=== PATIENT | male | born 1955 | race Caucasian/White ===

== ENCOUNTER 2022-07-24 02:11 | Outpatient (RCR) | payer MEDICAID, SELFPAY ==
[2022-07-24] MEDS: Normal Saline Flush 10 ML SYR IVP (10:39)
[2022-07-24 10:47] LABS: Abs Immature Grans 0.06 10^3/uL (0.0-0.06); Absolute Basophil Count 0.05 10^3/uL (0.0-0.2); Absolute Eosinophil Count 0.32 10^3/uL (0.0-0.7); Absolute Lymphocyte Count 2.02 10^3/uL (1.2-3.4); Absolute Monocyte Count 1.19 10^3/uL (0.1-0.8); Basophils % 0.4; Eosinophils % 2.8; HCT 40.5 % (40.0-50.0); HGB 12.7 g/dL (13.5-17.5); Immature Grans % 0.5; Lymphocytes % 17.7; MCH 26.7 pg (27.0-33.0); MCHC 31.4 % (32.0-36.0); MCV 85 fL (80-95); MPV 10.4 fL (8.0-11.0); Monocytes % 10.4; Neutrophils % 68.2; Platelet Count 297 10^3/uL (130-400); RBC 4.75 10^6/uL (4.36-5.78); RDW 13.9 % (11.8-14.1); RDW-SD 42.8 fL; WBC 11.41 10^3/uL (4.4-10.8)
[2022-07-24 10:49] LABS: Absolute Neutrophil Count 7.78 10^3/uL (1.2-6.7)
[2022-07-24 11:13] LABS: ALT 49 U/L (16-63); AST 48 U/L (15-37); Albumin 2.6 g/dL (3.4-5.0); Alkaline Phosphatase 144 U/L (46-116); Anion Gap 5.8 mmol/L (3-11); BUN 13 mg/dL (7-18); Bilirubin, Total 0.4 mg/dL (0.2-1.0); CO2 28.2 mmol/L (21.0-32.0); CREATININE 0.8 mg/dL (0.70-1.30); Calcium 9.1 mg/dL (8.5-10.1); Chloride 103 mmol/L (98-107); Estimated GFR 98.83 (mL/min/1.73m2); Ferritin 911 ng/mL (26-388); Glucose 110 mg/dL (74-106); Potassium 4.2 mmol/L (3.5-5.1); Sodium 137 mmol/L (136-145)
[2022-07-24 13:08] LABS: Iron 44 ug/dL (65-175); Total Iron Binding Capacity 178 ug/dL (250-450); Transferrin Sat 25 % (20-55)
[2022-07-24 23:48] LABS: CEA 298.1 ng/mL (See Note)
== END 2022-08-03 23:59 | disposition home or self-care (01) ==
LOC: INF 02:11
PROVIDERS: PCP Family Medicine; Visit Provider Internal Medicine Hematology & Oncology
DX: Z45.2 Encounter for adjustment and management of vascular access device (principal); C18.9 Malignant neoplasm of colon, unspecified; C78.7 Secondary malignant neoplasm of liver and intrahepatic bile duct; D64.9 Anemia, unspecified
CPT/HCPCS: 36591; 80053; 82378; 82728; 83540; 83550; 85025

== ENCOUNTER 2022-08-26 00:08 | Outpatient (RCR) | payer MEDICAID, SELFPAY ==
[2022-08-10 07:57] LABS: Abs Immature Grans 0.01 10^3/uL (0.0-0.06); Absolute Basophil Count 0.05 10^3/uL (0.0-0.2); Absolute Eosinophil Count 0.58 10^3/uL (0.0-0.7); Absolute Lymphocyte Count 1.94 10^3/uL (1.2-3.4); Absolute Monocyte Count 1.07 10^3/uL (0.1-0.8); Absolute Neutrophil Count 2.63 10^3/uL (1.2-6.7); Basophils % 0.8; Eosinophils % 9.2; HCT 40.1 % (40.0-50.0); HGB 12.9 g/dL (13.5-17.5); Immature Grans % 0.2; Lymphocytes % 30.9; MCH 27.9 pg (27.0-33.0); MCHC 32.2 % (32.0-36.0); MCV 87 fL (80-95); Neutrophils % 41.9; Platelet Count 296 10^3/uL (130-400); RBC 4.63 10^6/uL (4.36-5.78); RDW 14.8 % (11.8-14.1); RDW-SD 45.5 fL; WBC 6.28 10^3/uL (4.4-10.8)
[2022-08-10 08:12] LABS: ALT 55 U/L (16-63); AST 46 U/L (15-37); Albumin 2.7 g/dL (3.4-5.0); Alkaline Phosphatase 138 U/L (46-116); Anion Gap 6.5 mmol/L (3-11); BUN 9 mg/dL (7-18); Bilirubin, Total 0.3 mg/dL (0.2-1.0); CO2 28.5 mmol/L (21.0-32.0); CREATININE 0.8 mg/dL (0.70-1.30); Calcium 8.9 mg/dL (8.5-10.1); Chloride 103 mmol/L (98-107); Estimated GFR 98.83 (mL/min/1.73m2); Glucose 102 mg/dL (74-106); Potassium 4.3 mmol/L (3.5-5.1); Sodium 138 mmol/L (136-145); Total Protein 7.7 g/dL (6.4-8.2)
[2022-08-10] MEDS: Normal Saline Flush 10 ML SYR IVP (08:27)
[2022-08-12] MEDS: Heparin 500 UNITS/5 ML SYRINGE IV (09:33)
[2022-08-12] MEDS: Normal Saline Flush 10 ML SYR IVP (09:33)
[2022-08-24 08:30] LABS: Abs Immature Grans 0.02 10^3/uL (0.0-0.06); Absolute Basophil Count 0.02 10^3/uL (0.0-0.2); Absolute Eosinophil Count 0.53 10^3/uL (0.0-0.7); Absolute Lymphocyte Count 1.71 10^3/uL (1.2-3.4); Absolute Monocyte Count 0.79 10^3/uL (0.1-0.8); Absolute Neutrophil Count 2.99 10^3/uL (1.2-6.7); Basophils % 0.3; Eosinophils % 8.7; HCT 38.6 % (40.0-50.0); HGB 12.4 g/dL (13.5-17.5); Immature Grans % 0.3; Lymphocytes % 28.2; MCH 28.1 pg (27.0-33.0); MCHC 32.1 % (32.0-36.0); MCV 88 fL (80-95); MPV 10.2 fL (8.0-11.0); Neutrophils % 49.5; Platelet Count 165 10^3/uL (130-400); RBC 4.41 10^6/uL (4.36-5.78); RDW 16.8 % (11.8-14.1); RDW-SD 46.5 fL; WBC 6.06 10^3/uL (4.4-10.8)
[2022-08-24] MEDS: Normal Saline Flush 10 ML SYR IVP (08:32)
[2022-08-24 08:43] LABS: ALT 45 U/L (16-63); AST 37 U/L (15-37); Albumin 2.7 g/dL (3.4-5.0); Alkaline Phosphatase 129 U/L (46-116); Anion Gap 5.3 mmol/L (3-11); BUN 9 mg/dL (7-18); Bilirubin, Total 0.3 mg/dL (0.2-1.0); CO2 28.7 mmol/L (21.0-32.0); CREATININE 0.9 mg/dL (0.70-1.30); Chloride 105 mmol/L (98-107); Estimated GFR 95.37 (mL/min/1.73m2); Glucose 121 mg/dL (74-106); Potassium 4.2 mmol/L (3.5-5.1); Sodium 139 mmol/L (136-145); Total Protein 7.3 g/dL (6.4-8.2)
[2022-08-26 10:57] VITALS: BP 107/67; PULSE 82; RESP 20; TEMP 36.3; O2SAT 96
[2022-08-26] MEDS: Heparin 500 UNITS/5 ML SYRINGE IV (10:59)
[2022-08-26] MEDS: Normal Saline Flush 10 ML SYR IVP (10:59)
== END 2022-09-02 23:59 | disposition home or self-care (01) ==
LOC: INF 00:08
PROVIDERS: PCP Family Medicine; Visit Provider Internal Medicine Hematology & Oncology
DX: Z45.2 Encounter for adjustment and management of vascular access device (principal); C18.9 Malignant neoplasm of colon, unspecified; C78.7 Secondary malignant neoplasm of liver and intrahepatic bile duct
CPT/HCPCS: 36591; 80053; 96523; 82378; 85025

== ENCOUNTER 2022-09-23 00:51 | Outpatient (RCR) | payer MEDICAID, SELFPAY ==
[2022-09-03 00:09] VITALS: BP 107/67; PULSE 82; RESP 20; TEMP 36.3
[2022-09-07 09:10] LABS: Abs Immature Grans 0.02 10^3/uL (0.0-0.06); Absolute Basophil Count 0.03 10^3/uL (0.0-0.2); Absolute Eosinophil Count 0.31 10^3/uL (0.0-0.7); Absolute Lymphocyte Count 1.71 10^3/uL (1.2-3.4); Absolute Monocyte Count 0.85 10^3/uL (0.1-0.8); Absolute Neutrophil Count 2.27 10^3/uL (1.2-6.7); Basophils % 0.6; HCT 37.6 % (40.0-50.0); HGB 12.4 g/dL (13.5-17.5); Immature Grans % 0.4; Lymphocytes % 32.9; MCH 29.2 pg (27.0-33.0); MCV 89 fL (80-95); MPV 10.6 fL (8.0-11.0); Monocytes % 16.4; Neutrophils % 43.7; Platelet Count 134 10^3/uL (130-400); RBC 4.24 10^6/uL (4.36-5.78); RDW 19.2 % (11.8-14.1); RDW-SD 56.6 fL; WBC 5.19 10^3/uL (4.4-10.8)
[2022-09-07 09:23] LABS: ALT 45 U/L (16-63); AST 39 U/L (15-37); Albumin 2.9 g/dL (3.4-5.0); Alkaline Phosphatase 128 U/L (46-116); Anion Gap 6.2 mmol/L (3-11); BUN 10 mg/dL (7-18); Bilirubin, Total 0.3 mg/dL (0.2-1.0); CO2 27.8 mmol/L (21.0-32.0); CREATININE 0.8 mg/dL (0.70-1.30); Calcium 9.5 mg/dL (8.5-10.1); Chloride 106 mmol/L (98-107); Estimated GFR 98.83 (mL/min/1.73m2); Glucose 111 mg/dL (74-106); Potassium 4.3 mmol/L (3.5-5.1); Sodium 140 mmol/L (136-145); Total Protein 7.6 g/dL (6.4-8.2)
[2022-09-07] MEDS: Normal Saline Flush 10 ML SYR IVP (10:23)
[2022-09-07 21:04] LABS: CEA 63.3 ng/mL (See Note)
[2022-09-09] MEDS: Heparin 500 UNITS/5 ML SYRINGE IV (11:06)
[2022-09-09] MEDS: Normal Saline Flush 10 ML SYR IVP (11:06)
[2022-09-21] MEDS: Normal Saline Flush 10 ML SYR IVP (08:57)
[2022-09-21 09:02] LABS: Abs Immature Grans 0.01 10^3/uL (0.0-0.06); Absolute Basophil Count 0.02 10^3/uL (0.0-0.2); Absolute Eosinophil Count 0.31 10^3/uL (0.0-0.7); Absolute Lymphocyte Count 2.03 10^3/uL (1.2-3.4); Absolute Monocyte Count 0.98 10^3/uL (0.1-0.8); Absolute Neutrophil Count 2.91 10^3/uL (1.2-6.7); Basophils % 0.3; HCT 39.7 % (40.0-50.0); Immature Grans % 0.2; Lymphocytes % 32.4; MCH 29.6 pg (27.0-33.0); MCHC 32.7 % (32.0-36.0); MCV 90 fL (80-95); MPV 10.8 fL (8.0-11.0); Monocytes % 15.7; Neutrophils % 46.4; Platelet Count 124 10^3/uL (130-400); RBC 4.39 10^6/uL (4.36-5.78); RDW 21.1 % (11.8-14.1); RDW-SD 66.3 fL; WBC 6.26 10^3/uL (4.4-10.8)
[2022-09-21 09:14] LABS: Anisocytosis 2+; Diff Comment RBC Morph Reviewed
[2022-09-21 10:31] LABS: ALT 36 U/L (16-63); AST 34 U/L (15-37); Albumin 2.9 g/dL (3.4-5.0); Alkaline Phosphatase 127 U/L (46-116); Anion Gap 7.5 mmol/L (3-11); BUN 12 mg/dL (7-18); Bilirubin, Total 0.3 mg/dL (0.2-1.0); CO2 26.5 mmol/L (21.0-32.0); CREATININE 0.8 mg/dL (0.70-1.30); Calcium 9.1 mg/dL (8.5-10.1); Chloride 105 mmol/L (98-107); Estimated GFR 98.83 (mL/min/1.73m2); Glucose 111 mg/dL (74-106); Potassium 4.4 mmol/L (3.5-5.1); Sodium 139 mmol/L (136-145); Total Protein 7.7 g/dL (6.4-8.2)
[2022-09-21 19:27] LABS: CEA 37.5 ng/mL (See Note)
[2022-09-23 10:27] VITALS: PULSE 87; RESP 16; TEMP 36.3; O2SAT 97
[2022-09-23] MEDS: Normal Saline Flush 10 ML SYR IVP (12:33)
[2022-09-23] MEDS: Heparin 500 UNITS/5 ML SYRINGE IV (12:33)
== END 2022-10-03 23:59 | disposition home or self-care (01) ==
LOC: INF 00:51
PROVIDERS: PCP Family Medicine; Visit Provider Internal Medicine Hematology & Oncology
DX: Z45.2 Encounter for adjustment and management of vascular access device (principal); C18.9 Malignant neoplasm of colon, unspecified; C78.7 Secondary malignant neoplasm of liver and intrahepatic bile duct
CPT/HCPCS: 36591; 80053; 96523; 82378; 85025

== ENCOUNTER 2022-11-02 00:41 | Outpatient (RCR) | payer MEDICAID, SELFPAY ==
[2022-10-04 00:15] VITALS: BP 107/67; PULSE 87; RESP 16; TEMP 36.3
[2022-10-05] MEDS: Normal Saline Flush 10 ML SYR IVP (09:32)
[2022-10-05 09:55] LABS: Abs Immature Grans 0.02 10^3/uL (0.0-0.06); Absolute Basophil Count 0.04 10^3/uL (0.0-0.2); Absolute Eosinophil Count 0.32 10^3/uL (0.0-0.7); Absolute Lymphocyte Count 1.92 10^3/uL (1.2-3.4); Absolute Monocyte Count 0.99 10^3/uL (0.1-0.8); Absolute Neutrophil Count 2.17 10^3/uL (1.2-6.7); Basophils % 0.7; Eosinophils % 5.9; HCT 36.3 % (40.0-50.0); Immature Grans % 0.4; Lymphocytes % 35.2; MCH 30.8 pg (27.0-33.0); MCHC 33.1 % (32.0-36.0); MCV 93 fL (80-95); MPV 10.7 fL (8.0-11.0); Monocytes % 18.1; Neutrophils % 39.7; Platelet Count 106 10^3/uL (130-400); RBC 3.89 10^6/uL (4.36-5.78); RDW 22.1 % (11.8-14.1); RDW-SD 72.3 fL; WBC 5.46 10^3/uL (4.4-10.8)
[2022-10-05 10:11] LABS: ALT 37 U/L (16-63); AST 38 U/L (15-37); Albumin 2.9 g/dL (3.4-5.0); Alkaline Phosphatase 125 U/L (46-116); Anion Gap 4.7 mmol/L (3-11); BUN 8 mg/dL (7-18); Bilirubin, Total 0.3 mg/dL (0.2-1.0); CO2 28.3 mmol/L (21.0-32.0); CREATININE 0.8 mg/dL (0.70-1.30); Calcium 8.9 mg/dL (8.5-10.1); Chloride 106 mmol/L (98-107); Estimated GFR 98.83 (mL/min/1.73m2); Glucose 102 mg/dL (74-106); Potassium 4.2 mmol/L (3.5-5.1); Sodium 139 mmol/L (136-145); Total Protein 7.2 g/dL (6.4-8.2)
[2022-10-05 10:21] LABS: Anisocytosis 2+; Diff Comment RBC Morph Reviewed
[2022-10-05 19:39] LABS: CEA 20.9 ng/mL (See Note)
[2022-10-19 08:12] LABS: Abs Immature Grans 0.06 10^3/uL (0.0-0.06); Absolute Basophil Count 0.06 10^3/uL (0.0-0.2); Absolute Lymphocyte Count 2.38 10^3/uL (1.2-3.4); Absolute Neutrophil Count 8.52 10^3/uL (1.2-6.7); Basophils % 0.5; Eosinophils % 2.5; HCT 42.6 % (40.0-50.0); HGB 14.1 g/dL (13.5-17.5); Immature Grans % 0.5; MCH 31.6 pg (27.0-33.0); MCHC 33.1 % (32.0-36.0); MCV 96 fL (80-95); MPV 11.4 fL (8.0-11.0); Monocytes % 9.6; Neutrophils % 67.9; Platelet Count 169 10^3/uL (130-400); RBC 4.46 10^6/uL (4.36-5.78); RDW 20.2 % (11.8-14.1); RDW-SD 70.2 fL; WBC 12.55 10^3/uL (4.4-10.8)
[2022-10-19 08:17] LABS: Absolute Eosinophil Count 0.31 10^3/uL (0.0-0.7)
[2022-10-19] MEDS: Normal Saline Flush 10 ML SYR IVP (08:25)
[2022-10-19 08:27] LABS: ALT 45 U/L (16-63); AST 42 U/L (15-37); Albumin 3.1 g/dL (3.4-5.0); Alkaline Phosphatase 128 U/L (46-116); BUN 11 mg/dL (7-18); Bilirubin, Total 0.3 mg/dL (0.2-1.0); CREATININE 0.8 mg/dL (0.70-1.30); Calcium 9.1 mg/dL (8.5-10.1); Chloride 104 mmol/L (98-107); Estimated GFR 98.83 (mL/min/1.73m2); Glucose 108 mg/dL (74-106); Sodium 138 mmol/L (136-145); Total Protein 7.9 g/dL (6.4-8.2)
[2022-10-19 08:37] LABS: Anisocytosis 2+; Diff Comment RBC Morph Reviewed
[2022-10-19 22:14] LABS: CEA 16.6 ng/mL (See Note)
[2022-10-21] MEDS: Heparin 500 UNITS/5 ML SYRINGE IV (10:51)
[2022-10-21] MEDS: Normal Saline Flush 10 ML SYR IVP (10:51)
[2022-11-02] MEDS: Normal Saline Flush 10 ML SYR IVP (08:36)
[2022-11-02 09:23] LABS: Abs Immature Grans 0.06 10^3/uL (0.0-0.06); Absolute Basophil Count 0.02 10^3/uL (0.0-0.2); Absolute Eosinophil Count 0.35 10^3/uL (0.0-0.7); Absolute Monocyte Count 0.92 10^3/uL (0.1-0.8); Basophils % 0.2; Eosinophils % 2.9; HCT 41.6 % (40.0-50.0); HGB 13.6 g/dL (13.5-17.5); Immature Grans % 0.5; Lymphocytes % 14.9; MCH 31.8 pg (27.0-33.0); MCHC 32.7 % (32.0-36.0); MCV 97 fL (80-95); MPV 10.6 fL (8.0-11.0); Monocytes % 7.6; Neutrophils % 73.9; Platelet Count 141 10^3/uL (130-400); RBC 4.28 10^6/uL (4.36-5.78); RDW 18.8 % (11.8-14.1); RDW-SD 67.1 fL; WBC 12.05 10^3/uL (4.4-10.8)
[2022-11-02 09:47] LABS: ALT 44 U/L (16-63); AST 32 U/L (15-37); Albumin 3.1 g/dL (3.4-5.0); Alkaline Phosphatase 119 U/L (46-116); Anion Gap 8.7 mmol/L (3-11); BUN 8 mg/dL (7-18); Bilirubin, Total 0.3 mg/dL (0.2-1.0); CO2 26.3 mmol/L (21.0-32.0); CREATININE 0.7 mg/dL (0.70-1.30); Calcium 8.9 mg/dL (8.5-10.1); Chloride 105 mmol/L (98-107); Estimated GFR 102.89 (mL/min/1.73m2); Glucose 109 mg/dL (74-106); Potassium 3.6 mmol/L (3.5-5.1); Sodium 140 mmol/L (136-145); Total Protein 7.3 g/dL (6.4-8.2)
[2022-11-02 20:42] LABS: CEA 15.9 ng/mL (See Note)
== END 2022-11-02 23:59 | disposition home or self-care (01) ==
LOC: INF 00:41
PROVIDERS: PCP Family Medicine; Visit Provider Internal Medicine Hematology & Oncology
DX: Z45.2 Encounter for adjustment and management of vascular access device (principal); C18.9 Malignant neoplasm of colon, unspecified; C78.7 Secondary malignant neoplasm of liver and intrahepatic bile duct
CPT/HCPCS: 36591; 80053; 96523; 82378; 85025

== ENCOUNTER 2022-12-02 | Outpatient (RCR) | payer MEDICAID, SELFPAY ==
[2022-11-03 00:07] VITALS: BP 107/67; PULSE 87; RESP 16; TEMP 36.3
[2022-11-16 10:17] LABS: Abs Immature Grans 0.13 10^3/uL (0.0-0.06); Absolute Lymphocyte Count 3.78 10^3/uL (1.2-3.4); Absolute Monocyte Count 1.75 10^3/uL (0.1-0.8); Absolute Neutrophil Count 13.14 10^3/uL (1.2-6.7); Basophils % 0.3; Eosinophils % 0.8; HCT 41.5 % (40.0-50.0); HGB 13.6 g/dL (13.5-17.5); Immature Grans % 0.7; Lymphocytes % 19.9; MCH 32.3 pg (27.0-33.0); MCHC 32.8 % (32.0-36.0); MCV 99 fL (80-95); Monocytes % 9.2; Neutrophils % 69.1; Platelet Count 146 10^3/uL (130-400); RBC 4.21 10^6/uL (4.36-5.78); RDW 15.9 % (11.8-14.1); RDW-SD 58.4 fL; WBC 19.01 10^3/uL (4.4-10.8)
[2022-11-16] MEDS: Normal Saline Flush 10 ML SYR IVP (10:19)
[2022-11-16 10:21] LABS: Absolute Basophil Count 0.06 10^3/uL (0.0-0.2); Absolute Eosinophil Count 0.15 10^3/uL (0.0-0.7)
[2022-11-16 10:29] LABS: Diff Comment Diff Reviewed; RBC Morphology Normal
[2022-11-16 10:33] LABS: ALT 68 U/L (16-63); AST 32 U/L (15-37); Alkaline Phosphatase 104 U/L (46-116); BUN 14 mg/dL (7-18); Bilirubin, Total 0.3 mg/dL (0.2-1.0); CREATININE 0.9 mg/dL (0.70-1.30); Calcium 9.1 mg/dL (8.5-10.1); Chloride 105 mmol/L (98-107); Estimated GFR 95.37 (mL/min/1.73m2); Glucose 98 mg/dL (74-106); Potassium 3.8 mmol/L (3.5-5.1); Sodium 142 mmol/L (136-145)
[2022-11-16 20:10] LABS: CEA 14.2 ng/mL (See Note)
[2022-11-30] MEDS: Normal Saline Flush 10 ML SYR IVP (09:25)
[2022-11-30 09:47] LABS: Abs Immature Grans 0.05 10^3/uL (0.0-0.06); Absolute Basophil Count 0.04 10^3/uL (0.0-0.2); Absolute Eosinophil Count 0.47 10^3/uL (0.0-0.7); Basophils % 0.3; Eosinophils % 3.2; HCT 46.7 % (40.0-50.0); HGB 15.7 g/dL (13.5-17.5); Immature Grans % 0.3; Lymphocytes % 16.5; MCH 32.6 pg (27.0-33.0); MCHC 33.6 % (32.0-36.0); MCV 97 fL (80-95); MPV 11.3 fL (8.0-11.0); Monocytes % 7.2; Neutrophils % 72.5; Platelet Count 158 10^3/uL (130-400); RBC 4.82 10^6/uL (4.36-5.78); RDW 14.1 % (11.8-14.1); RDW-SD 50.4 fL; WBC 14.63 10^3/uL (4.4-10.8)
[2022-11-30 09:48] LABS: Absolute Lymphocyte Count 2.41 10^3/uL (1.2-3.4); Absolute Monocyte Count 1.05 10^3/uL (0.1-0.8); Absolute Neutrophil Count 10.61 10^3/uL (1.2-6.7)
[2022-11-30 10:10] LABS: ALT 68 U/L (16-63); AST 40 U/L (15-37); Albumin 3.2 g/dL (3.4-5.0); Alkaline Phosphatase 103 U/L (46-116); Anion Gap 7.7 mmol/L (3-11); BUN 9 mg/dL (7-18); Bilirubin, Total 0.6 mg/dL (0.2-1.0); CO2 28.3 mmol/L (21.0-32.0); Calcium 9.3 mg/dL (8.5-10.1); Chloride 103 mmol/L (98-107); Estimated GFR 84.05 (mL/min/1.73m2); Glucose 119 mg/dL (74-106); Potassium 3.9 mmol/L (3.5-5.1); Sodium 139 mmol/L (136-145); Total Protein 7.3 g/dL (6.4-8.2)
[2022-11-30 12:09] VITALS: BP 107/67; PULSE 87; RESP 16; TEMP 36.3
[2022-11-30 19:54] LABS: CEA 11.4 ng/mL (See Note)
[2022-12-02 12:01] VITALS: BP 115/71; PULSE 88; RESP 18; TEMP 36.5; O2SAT 95
== END 2022-12-03 23:59 | disposition home or self-care (01) ==
LOC: INF
PROVIDERS: PCP Family Medicine; Visit Provider Internal Medicine Hematology & Oncology
DX: Z45.2 Encounter for adjustment and management of vascular access device (principal); C18.9 Malignant neoplasm of colon, unspecified; C78.7 Secondary malignant neoplasm of liver and intrahepatic bile duct
CPT/HCPCS: 36591; 80053; 96523; 82378; 85025

== ENCOUNTER 2022-12-14 10:25 | Emergency (ER) | payer MEDICARE, MEDICAID, SELFPAY ==
--- NOTE | 2022-12-14 10:15 | RT.EKG_ITS ---
APPROVED REPORT Exam: Resting ECG Reason for Exam: Dyspnea Patient Location: E HR:100 bpm ECG Measurements Heart Rate [address] 156 P 48 QRSd 74 QRS 5 QT 377 T 103 QTc 485 Conclusion Sinus tachycardia...rate> 99 Consider anteroseptal infarct...Q >30mS, dimin R, V1-V2 Nonspecific T abnormalities, lateral leads...T <-0.10mV, I aVL V5 V6
[2022-12-14 10:29] VITALS: BP 139/68; TEMP 36.3; O2SAT 93
--- NOTE | 2022-12-14 10:50 | W.ED.GENAD ---
Discharge Plan Discharge Details Chief Complaint: Nk/Back Pain Primary Care Provider: KATHY NICOLAS ED Provider: Ryan Medel Medical Decision Making Patient's lab from this morning revealed unremarkable CBC normal creatinine. Unremarkable chemistries CT PE protocol will be ordered to rule out pulmonary embolism. CT of the chest does not reveal any other abnormalities other than his baseline pulmonary fibrosis. No infiltrates. No PE. These results were reviewed with the patient and his . He will be discharged home to follow-up with his oncologist and primary care doctor as needed. HPI General Date/Time Provider Initiated Documentation: 12/14/22 10:50. HPI Narrative: 67-year-old sent to the emergency department for further evaluation shortness of breath. Patient was seen at the cancer center just before chemo therapy which was suspended today and sent to the ED for further evaluation of back pain and shortness of breath. Patient states that he is currently asymptomatic. For the past 2 months he has been having upper back pain between the shoulder blades that last a few hours on a daily basis and resolves with ibuprofen. Not associated with shortness of breath. Not associated with exertion. Not positional. Not associated with any chest pain. He states that he was diagnosed with idiopathic pulmonary fibrosis 4 years ago. He states that for the past 6 months he has had dyspnea on exertion which resolves with rest and oxygen. Related Data Allergies Allergy/AdvReac Type Severity Reaction Status Date / Time amoxicillin Allergy Unverified 12/14/22 10:36 erythromycin base Allergy Unverified 12/14/22 10:36 General Stated Complaint: Nk/Back Pain JEFF: 3 Review of Systems Narrative: 10 point review of system is negative unless otherwise stipulated in the HPI FORMERLY [facility], [facility]–1983 Medical History (Updated 12/14/22 @ 10:39 by Shane Walters) Cancer Surgical History (Updated 12/14/22 @ 10:39 by Shane Walters) Stented coronary artery Social History Smoking/Tobacco Use Status: Never Smoking risk assessment performed?: Yes Alcohol Intake: never Drug use: Never Substance use type: does not use Do you feel safe at home: Yes Do you feel safe in your relationship?: Yes Exam Narrative Exam Narrative: Awake alert oriented 3, no acute distress pleasant cooperative Resting comfortably in bed with oxygen with normal saturations. Cephalic atraumatic Neck supple no JVD Heart regular rhythm and rate no murmurs Pulmonary auscultation reveals diffuse crackling with the patient states he has chronically. Abdomen soft nondistended nontender Extremities moving all 4 no edema Skin normal Neuro grossly intact Psych normal mood and affect Course Vital Signs Vital signs: Vital Signs Temperature 36.3 C L 12/14/22 10:29 Blood Pressure 139/68 12/14/22 10:29 Pulse Oximetry 93 12/14/22 10:29 Temperature 36.3 C L 12/14/22 10:29 Temperature Source Temporal Artery Scan 12/14/22 10:29 Respiratory Effort Normal 12/14/22 10:36 Blood Pressure 139/68 12/14/22 10:29 Blood Pressure Position Supine 12/14/22 10:29 Pulse Oximetry 93 12/14/22 10:29 Oxygen Delivery Method Room Air 12/14/22 10:29 Oxygen Flow Rate 0 12/14/22 10:29 Pain Level 0 12/14/22 10:29
--- NOTE | 2022-12-14 12:28 | DI.CT_ITS ---
Exam(s) CT CHEST PE CTA EXAM: CT CHEST PE CTA CLINICAL HISTORY: sob. TECHNIQUE: Imaging Protocol: Axial CT angiography was performed with multi-slice acquisition and mu lti-planar reconstructions as well as axial, coronal and sagittal MIP reconstructions. CONTRAST MATERIAL: Intravenous: Omnipaque 350 Contrast volume:100 ml COMPARISON: No exams were available for comparison FINDINGS: Pulmonary Arteries: No evidence of filling defect to suggest pulmonary emboli. Tracheobronchial tree: Patent where visualized. Mediastinum and [place]: Mildly enlarged mediastinal lymph nodes. Pulmonary parenchyma: Severe pulmonary fibrosis. Peripheral honeycombing. Mild traction bronchiecta sis right lower lobe. no consolidation or dominant measurable mass. Pleura: No effusion or pneumothorax. Heart: The heart is not dilated. Moderate to severe coronary artery calcifications are seen. Aorta: Thoracic aorta non-dilated. No aneurysm. No dissection. Mild atherosclerotic changes. Upper abdomen: Multiple liver lesions. Patient has a history colon cancer with liver metastases.. Bones: Prominent osteophytes in the thoracic spine. No lytic or blastic lesions. No compression fra ctures. Tubes, Catheters, and Lines: Port over right upper chest. Soft tissues: Mild bilateral CT gynecomastia. IMPRESSION: No evidence of pulmonary embolism. Severe changes of pulmonary fibrosis. Liver metastases. Findings called to Dr. Medel of the emergency department. RADIATION DOSE DELIVERED: 498.91mGy.cm Total DLP DATA REPOSITORY: All CT scans at this facility are submitted to the National Radiology Data Registry (NRDR) Dose Index Registry (DIR) with the [employer] ([employer]). RADIATION OPTIMIZATION: All CT scans at this facility use at least one of these dose optimization te chniques: automated exposure control; mA and/or kV adjustment per patient size (includes targeted exa ms where dose is matched to clinical indication); or iterative reconstruction.
[2022-12-14] MEDS: Normal Saline - Diluent 50 ML VIAL IV (12:29)
[2022-12-14] MEDS: Omnipaque 350 MG/ML 100 ML BTL IJ (12:30)
[2022-12-14] MEDS: Normal Saline Flush 10 ML SYR IVP (12:31)
[2022-12-14] MEDS: Heparin 500 UNITS/5 ML SYRINGE (13:44)
== END 2022-12-14 14:13 | disposition home or self-care (01) ==
PROVIDERS: Emergency Provider Emergency Medicine; PCP Family Medicine
DX: M54.50 Low back pain, unspecified (principal); R06.02 Shortness of breath; R00.0 Tachycardia, unspecified; J84.112 Idiopathic pulmonary fibrosis; C80.1 Malignant (primary) neoplasm, unspecified; Z92.21 Personal history of antineoplastic chemotherapy; Z95.5 Presence of coronary angioplasty implant and graft
CPT/HCPCS: 71275; 93005; 99285; 93010; 99284; J3490

== ENCOUNTER 2022-12-28 00:55 | Outpatient (RCR) | payer MEDICARE, MEDICAID, SELFPAY ==
[2022-12-04 00:03] VITALS: BP 115/71; PULSE 88; RESP 18; TEMP 36.5
[2022-12-14] MEDS: Normal Saline Flush 10 ML SYR IVP (08:25)
[2022-12-14 08:46] LABS: Abs Immature Grans 0.02 10^3/uL (0.0-0.06); Absolute Basophil Count 0.03 10^3/uL (0.0-0.2); Absolute Eosinophil Count 0.33 10^3/uL (0.0-0.7); Absolute Lymphocyte Count 1.95 10^3/uL (1.2-3.4); Absolute Monocyte Count 0.75 10^3/uL (0.1-0.8); Absolute Neutrophil Count 4.63 10^3/uL (1.2-6.7); Basophils % 0.4; Eosinophils % 4.3; HCT 42.3 % (40.0-50.0); HGB 14.3 g/dL (13.5-17.5); Immature Grans % 0.3; Lymphocytes % 25.3; MCH 32.5 pg (27.0-33.0); MCHC 33.8 % (32.0-36.0); MCV 96 fL (80-95); Monocytes % 9.7; RDW 14.3 % (11.8-14.1); RDW-SD 48.6 fL; WBC 7.71 10^3/uL (4.4-10.8)
[2022-12-14 09:00] LABS: ALT 45 U/L (16-63); AST 38 U/L (15-37); Albumin 2.9 g/dL (3.4-5.0); Alkaline Phosphatase 105 U/L (46-116); Anion Gap 8.1 mmol/L (3-11); BUN 7 mg/dL (7-18); Bilirubin, Total 0.3 mg/dL (0.2-1.0); CO2 26.9 mmol/L (21.0-32.0); CREATININE 0.8 mg/dL (0.70-1.30); Calcium 8.9 mg/dL (8.5-10.1); Chloride 107 mmol/L (98-107); Estimated GFR 98.21 (mL/min/1.73m2); Glucose 105 mg/dL (74-106); Potassium 3.9 mmol/L (3.5-5.1); Sodium 142 mmol/L (136-145); Total Protein 6.7 g/dL (6.4-8.2)
[2022-12-14 09:12] LABS: Diff Comment Diff Reviewed; Platelet Count 96 10^3/uL (130-400); RBC Morphology Normal
[2022-12-14 20:00] LABS: CEA 12.9 ng/mL (See Note)
[2022-12-28] MEDS: Normal Saline Flush 10 ML SYR IVP (12:36)
[2022-12-28 12:38] LABS: HCT 45.8 % (40.0-50.0); HGB 15.4 g/dL (13.5-17.5); MCH 32.4 pg (27.0-33.0); MCHC 33.6 % (32.0-36.0); MCV 96 fL (80-95); MPV 11.3 fL (8.0-11.0); Platelet Count 186 10^3/uL (130-400); RBC 4.75 10^6/uL (4.36-5.78); RDW 14.6 % (11.8-14.1); RDW-SD 51.7 fL; WBC 16.17 10^3/uL (4.4-10.8)
[2022-12-28 12:50] LABS: Absolute Lymphocyte Count 3.72 10^3/uL (1.2-3.4); Absolute Neutrophil Count 10.19 10^3/uL (1.2-6.7)
[2022-12-28 12:51] LABS: Absolute Eosinophil Count 0.49 10^3/uL (0.0-0.7); Absolute Monocyte Count 1.78 10^3/uL (0.1-0.8); Diff Comment Manual Differential; RBC Morphology Normal
[2022-12-28 13:16] LABS: ALT 47 U/L (16-63); AST 41 U/L (15-37); Albumin 3.1 g/dL (3.4-5.0); Alkaline Phosphatase 127 U/L (46-116); Anion Gap 10.1 mmol/L (3-11); BUN 8 mg/dL (7-18); Bilirubin, Total 0.4 mg/dL (0.2-1.0); CO2 25.9 mmol/L (21.0-32.0); CREATININE 0.8 mg/dL (0.70-1.30); Calcium 9.4 mg/dL (8.5-10.1); Chloride 104 mmol/L (98-107); Estimated GFR 98.21 (mL/min/1.73m2); Glucose 101 mg/dL (74-106); Potassium 4.1 mmol/L (3.5-5.1); Sodium 140 mmol/L (136-145); Total Protein 7.3 g/dL (6.4-8.2)
[2022-12-28 23:12] LABS: CEA 11.7 ng/mL (See Note)
== END 2023-01-03 23:59 | disposition home or self-care (01) ==
LOC: INF 00:55
PROVIDERS: PCP Family Medicine; Visit Provider Internal Medicine Hematology & Oncology
DX: C18.9 Malignant neoplasm of colon, unspecified (principal); C78.7 Secondary malignant neoplasm of liver and intrahepatic bile duct; Z45.2 Encounter for adjustment and management of vascular access device
CPT/HCPCS: 36591; 71275; 80053; 93005; 99285; 82378; 85025; 93010; 99284; J3490